=== PATIENT | female | born 1995 | race American Indian/Alaskan Native ===

== ENCOUNTER 2017-08-23 05:40 | Emergency (ER) | payer MEDICAID ==
[2017-08-23 06:21] VITALS: BP 111/70
[2017-08-23 06:59] LABS: Basophils % (Auto) 0.1 % (0.0-1.8); Eosinophils % (Auto) 0.2 % (0.0-4.3); Hematocrit 37.4 % (30.3-42.9); Hemoglobin 12.6 gm/dl (10.1-14.3); Lymphocytes # (Auto) 1.8 K/mm3 (1.2-5.4); Mean Corpuscular HGB Conc 34 % (30-34); Mean Corpuscular Hemoglobin 33 pg (28-32); Mean Corpuscular Volume 98 fl (79-97); Monocytes # (Auto) 2.4 K/mm3 (0.0-0.8); Platelet Count 322 K/mm3 (140-440); Red Blood Count 3.81 M/mm3 (3.65-5.03); Red Cell Distribution Width 13.2 % (13.2-15.2)
[2017-08-23 07:15] LABS: Alanine Aminotransferase 16 units/L (7-56); Albumin 3.8 g/dL (3.9-5); BUN/Creatinine Ratio 22; Blood Urea Nitrogen 11 mg/dL (7-17); Calcium 9.2 mg/dL (8.4-10.2); Hemolysis Index 1; Lipase 10 units/L (13-60)
[2017-08-23 08:18] LABS: Bacteria,Urine 2+ /HPF (Negative); Bilirubin,Urine NEG (Negative); Blood,Urine SM (Negative); Color,Urine Yellow (Yellow); Mucus,Urine FEW /HPF; Urobilinogen,Urine < 2.0 mg/dL (<2.0)
[2017-08-23 08:19] LABS: WBC,Urine > 182.0 /HPF (0.0-6.0)
[2017-08-23] MEDS ORDERED: ZOFRAN IV ONE (08:56)
[2017-08-23] MEDS ORDERED: NACL 0.9% 1000 ML 1,000 ML IV ONE (08:56)
[2017-08-23] MEDS ORDERED: TORADOL IV ONE (08:56)
--- NOTE | 2017-08-23 09:03 | Emergency Department Report ---
ED Abdominal Pain HPI - General Chief Complaint: Abdominal Pain Stated Complaint: ABDOMINAL PAIN Time Seen by Provider: 08/23/17 08:54 Source: patient, EMS Mode of arrival: Ambulatory Limitations: No Limitations - History of Present Illness Initial Comments: There is a 21-year-old -[place] female who presents for right lower quadrant pain started yesterday pain is 8/10 sharp exacerbated by movement and palpation last bowel movement yesterday diarrhea patient denies fevers or chills does endorse nausea no vomiting to this point no vaginal discharge no bleeding there is moderate a 10 right flank pain patient is taken over-the- counter NSAIDs all day, emesis 1 at 3 because she couldn't bear the pain anymore last menstrual cycle 2 weeks ago MD Complaint: abdominal pain, flank pain Onset/Timin -: Sudden Time: 18:00 Location: RLQ, R flank Radiation: RLQ Migration to: RLQ Severity: moderate Severity scale (0 -10): 7 Quality: aching, sharp Consistency: constant Improves With: nothing Worsens With: movement Associated Symptoms: nausea, diarrhea. denies: vomiting, fever, chills, constipation, dysuria, hematemesis, hematochezia, melena, hematuria, anorexia, syncope - Related Data LMP (females 10-50): last week Previous Rx's Medication Instructions Recorded Last Taken Type Ciprofloxacin HCl [Cipro] 500 mg PO BID #20 tablet 08/23/17 Unknown Rx Ibuprofen 800 mg PO TID PRN #30 tablet 08/23/17 Unknown Rx Ondansetron [Zofran Odt] 4 mg PO TID PRN #15 tab.rapdis 08/23/17 Unknown Rx Allergies Allergy/AdvReac Type Severity Reaction Status Date / Time No Known Allergies Allergy Unverified 08/23/17 06:15 ED Review of Systems ROS: Stated complaint: ABDOMINAL PAIN Other details as noted in HPI Constitutional: denies: chills, fever Eyes: denies: eye pain, eye discharge, vision change ENT: denies: ear pain, throat pain Respiratory: denies: cough, shortness of breath, wheezing Cardiovascular: denies: chest pain, palpitations Endocrine: no symptoms reported Gastrointestinal: abdominal pain, nausea. denies: vomiting, diarrhea, constipation, hematemesis, melena, hematochezia Genitourinary: as per HPI. denies: urgency, dysuria, frequency, hematuria, discharge, abnormal menses Musculoskeletal: back pain Skin: denies: rash, lesions Neurological: denies: headache, weakness, paresthesias Psychiatric: denies: anxiety, depression Hematological/Lymphatic: denies: easy bleeding, easy bruising ED Past Medical Hx - Past Medical History Previous Medical History?: No - Surgical History Past Surgical History?: No - Social History Smoking Status: Never Smoker - Medications Home Medications: Home Medications Medication Instructions Recorded Confirmed Last Taken Type Ciprofloxacin HCl [Cipro] 500 mg PO BID #20 tablet 08/23/17 Unknown Rx Ibuprofen 800 mg PO TID PRN #30 tablet 08/23/17 Unknown Rx Ondansetron [Zofran Odt] 4 mg PO TID PRN #15 tab.rapdis 08/23/17 Unknown Rx ED Physical Exam - General Limitations: No Limitations General appearance: alert, anxious - Head Head exam: Present: atraumatic, normocephalic - Eye Eye exam: Present: normal appearance - ENT ENT exam: Present: mucous membranes moist - Neck Neck exam: Present: normal inspection - Respiratory Respiratory exam: Present: normal lung sounds bilaterally. Absent: respiratory distress, wheezes, stridor - Cardiovascular Cardiovascular Exam: Present: regular rate, normal rhythm, normal heart sounds. Absent: systolic murmur, diastolic murmur, rubs, gallop - GI/Abdominal GI/Abdominal exam: Present: soft, guarding (mild guarding RLQ ), normal bowel sounds, hyperactive bowel sounds. Absent: rebound, rigid, organomegaly, mass, bruit, pulsatile mass, hernia - Expanded GI/Abdominal Exam Expanded GI/Abdominal exam: Present: heel tap sign, tenderness at Mcburney's Point. Absent: psoas sign, obturator sign, Marin's sign, Rovsing's sign, ascites - Rectal Rectal exam: Present: deferred - External exam: Present: other (deferred ) - Extremities Exam Extremities exam: Present: normal inspection - Back Exam Back exam: Present: normal inspection, full ROM, CVA tenderness (R), CVA tenderness (L). Absent: tenderness, muscle spasm, paraspinal tenderness, vertebral tenderness - Neurological Exam Neurological exam: Present: alert, oriented X3, normal gait. Absent: motor sensory deficit, reflexes normal - Psychiatric Psychiatric exam: Present: normal affect, normal mood - Skin Skin exam: Present: warm, dry, intact, normal color ED Course Vital Signs 08/23/17 08/23/17 08/23/17 06:17 09:18 09:48 Temperature 98.4 F Pulse Rate 100 H Respiratory 20 22 20 Rate Blood Pressure 111/70 O2 Sat by Pulse 100 Oximetry ED Medical Decision Making - Lab Data Result diagrams: 08/23/17 06:49 08/23/17 06:49 - Radiology Data Radiology results: report reviewed, image reviewed pyelonephritis plan: dc to home with cipro, ibuprofen, zofran prn follow up with [facility] in 2-3 days - Medical Decision Making This is bilateral lower patient's symptoms improved after Rocephin and IV fluids there is no nausea vomiting patient tolerating by mouth intake without symptoms abdominal pain reduced to 110 plan DC'd home in stable condition with Cipro R Profen when necessary pain and Zofran ODT when necessary nausea is given strict instructions to return to ED his symptoms worsen patient verbalized understanding and agreement with same discharged home in stable condition at this time Critical care attestation.: If time is entered above; I have spent that time in minutes in the direct care of this critically ill patient, excluding procedure time. ED Disposition Clinical Impression: Pyelonephritis Disposition: DC-01 TO HOME OR SELFCARE Is pt being admited?: No Does the pt Need Aspirin: No Condition: Good Instructions: Abdominal Pain (ED), Acute Pyelonephritis (ED) Prescriptions: Ciprofloxacin HCl [Cipro] 500 mg PO BID #20 tablet Ibuprofen 800 mg PO TID PRN #30 tablet PRN Reason: Pain Ondansetron [Zofran Odt] 4 mg PO TID PRN #15 tab.rapdis PRN Reason: Nausea And Vomiting Referrals: [facility] [Outside] - 3-5 Days Forms: Work/School Release Form(ED) Time of Disposition: 11:17
[2017-08-23] MEDS ORDERED: cefTRIAXone 1 GM in NACL 0.9% 20 ML IV NR (09:30)
--- NOTE | 2017-08-23 11:07 | Cat Scan Report ---
FINAL REPORT EXAM: CT ABDOMEN PELVIS W CON HISTORY: RLQ pain TECHNIQUE: CT abdomen and pelvis performed. Images extend from diaphragm to pubic symphysis. 100 cc Omnipaque 300 IV was administered. No oral contrast was administered. Axial images and coronal and sagittal reformatted images were obtained. PRIORS: None. FINDINGS: The visualized aspects of the lung bases are clear. There is [id number] right hydronephrosis but no obstructing stone identified. Heterogeneous areas of low attenuation in the anterior right kidney with appearance suspicious for pyelonephritis. This includes a more masslike area medially also likely on the basis of pyelonephritis. Actual mass is considered less likely. The visualized liver, spleen, pancreas, adrenal glands and left kidney demonstrate no significant abnormalities. There is no abdominal aortic aneurysm. There is no evidence of intestinal obstruction. The appendix is normal. There is no free intraperitoneal air. There are no abnormal fluid collections seen. The bladder is unremarkable. There is trace dependent fluid in the cul-de-sac. IMPRESSION: There are findings compatible with right pyelonephritis. Specifically there are heterogeneous areas of low-density in the anterior right kidney including a 1.6 cm masslike area of low-density medially. This is unlikely to represent an actual mass and likely related to the pyelonephritis. As a precaution, follow-up can be obtained after resolution of infectious process. There is mild right hydronephrosis but no obstructing stones seen. This also likely related to the inflammatory process.
[2017-08-23] MEDS ORDERED: MOTRIN PO ONE (11:34)
== END 2017-08-23 11:38 | disposition home or self-care (01) ==
LOC: ED 05:40
DX: N12 Tubulo-interstitial nephritis, not specified as acute or chronic (principal)
CPT/HCPCS: 36415; 74177; 80053; 81001; 83690; 84703; 85025; 96361; 96374; 96375; 99284; J0696; J1885; J2405; J7030; Q9967

== ENCOUNTER 2020-02-20 18:57 | Emergency (ER) | payer SELFPAY ==
[2020-02-20 20:05] VITALS: BP 157/93
== END 2020-02-20 22:41 | disposition left against medical advice (07) ==
LOC: ED 18:57
DX: R10.9 Unspecified abdominal pain (principal); Z53.21 Procedure and treatment not carried out due to patient leaving prior to being seen by health care provider

== ENCOUNTER 2020-03-15 14:32 | Emergency (ER) | payer SELFPAY ==
[2020-03-15 15:15] VITALS: BP 125/70
[2020-03-15 17:31] LABS: Basophils % (Auto) 0.4 % (0.0-1.8); Eosinophils % (Auto) 0.1 % (0.0-4.3); Hematocrit 35.3 % (30.3-42.9); Hemoglobin 12.2 gm/dl (10.1-14.3); Lymphocytes # (Auto) 2.2 K/mm3 (1.2-5.4); Lymphocytes % (Auto) 27.4 % (13.4-35.0); Mean Corpuscular HGB Conc 35 % (30-34); Mean Corpuscular Volume 98 fl (79-97); Monocytes # (Auto) 0.5 K/mm3 (0.0-0.8); Monocytes % (Auto) 6.2 % (0.0-7.3); Platelet Count 242 K/mm3 (140-440); Red Cell Distribution Width 13.3 % (13.2-15.2)
[2020-03-15 17:51] LABS: Alanine Aminotransferase 13 units/L (7-56); Albumin 4.5 g/dL (3.9-5); Blood Urea Nitrogen 8 mg/dL (7-17); Calcium 9.8 mg/dL (8.4-10.2); Hemolysis Index 8
[2020-03-15 17:58] LABS: BUN/Creatinine Ratio 13
== END 2020-03-15 21:32 | disposition left against medical advice (07) ==
LOC: ED 14:32
DX: R10.9 Unspecified abdominal pain (principal); Z53.21 Procedure and treatment not carried out due to patient leaving prior to being seen by health care provider